=== PATIENT | female | born 2005 | race Two or more races ===

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

== ENCOUNTER 2023-01-23 15:48 | Emergency (ER) | payer MEDICAID, SELFPAY ==
--- NOTE | ~2023-01-23 | US_ITS ---
EXAMINATION: US FIRST TRIMESTER CLINICAL INFORMATION: Abdominal pain, . LMP: Unknown Beta-hCG: Unknown COMPARISON: 12/18/2022 TECHNIQUE: Transabdominal imaging was performed. FINDINGS: Limited ultrasound. Single intrauterine gestational sac, cephalic presentation. Gestational age 26 weeks and 5 days. No ultrasound evidence of a placental hemorrhage. Normal heart rate of 158 beats per minutes. Previously estimated date of confinement 04/26/2023. During the exam motion was observed. US/US OB limited IMPRESSION: Limited ultrasound for viability. Single live intrauterine , motion observed. Cephalic presentation. This is very limited exam and does not include proper assessment. Recommend attention to follow-up complete ultrasound.
--- NOTE | 2023-01-23 15:50 | ED.GENADULT ---
HPI - General Adult General Chief complaint: Abdominal Pain <ROSEMARIE Varela - Last Filed: 01/23/23 15:51> Stated complaint: / sharp pain right side <ROSEMARIE Varela - Last Filed: 01/23/23 15:51> Time Seen by Provider: 01/23/23 16:05 <ROSEMARIE Varela - Last Filed: 01/23/23 15:51> Source: patient <Rafy Ordonez MD - Last Filed: 01/23/23 17:27> History of Present Illness HPI narrative: 18-year-old female , 27 weeks 4 days single intrauterine based on EDC 04/20/2023 determined by ultrasound on 12/18/2021 who presents emergency department for evaluation right-sided abdominal. Patient is followed at [facility]. The patient states she was walking mall around 15:00 hours when she had a sudden onset of right lower quadrant pain. She described as sharp pain. She sat down for approximately 10 minutes and the pain resolved. She then got up and was walking around the mall and the pain came back. She describes the pain is a sharp/cramping luxation which comes and goes. She states that last about 15 minutes. At the time my evaluation, she states that she is pain-free. The patient denied fever, chills, rhinorrhea, shortness of breath, cough, myalgias, arthralgias, frequency, urgency, dysuria, vaginal discharge or vaginal bleeding. She states that she does feel the baby moving and there has been no diminished movement. The patient was seen in the emergency department on 12/18/2022 with 4 days of mid back pain which was worse with walking. At that time she had an evaluation including an ultrasound which revealed a single intrauterine , ultrasound revealed no renal disease. Patient had a urinary tract infection based on UA, and she was treated with antibiotics, urine culture was negative. <Rafy Ordonez MD - Last Filed: 01/23/23 17:27> Related Data Home medications: Previous Rx's Medication Instructions Recorded cefpodoxime 200 mg tablet 200 mg PO BID #20 tabs 12/18/22 <ROSEMARIE Varela - Last Filed: 01/23/23 15:51> Allergies/adverse reactions: Allergies Allergy/AdvReac Type Severity Reaction Status Date / Time No Known Allergies Allergy Unverified 08/15/20 17:05 <ROSEMARIE Varela - Last Filed: 01/23/23 15:51> Review of Systems Review of Systems: Yes all other systems are reviewed and are negative <Rafy Ordonez MD - Last Filed: 01/23/23 17:27> FORMERLY [facility], [facility] Past Medical History Attestation statement: The following information was validated with the patient. <Rafy Ordonez MD - Last Filed: 01/23/23 17:27> FORMERLY [facility], [facility] Narrative: Past medical history: None. Past surgical history: None. Social history: She denies tobacco use. She denies alcohol use. She states she occasionally smokes marijuana but since she has found others and she has tried to cut down on use. <Rafy Ordonez MD - Last Filed: 01/23/23 17:27> Social History Social History: Social History Alcohol intake: never Smoked in Last 30 Days: No Use of substances other than those prescribed or required for medical reasons: No Substance Use Type: Marijuana Advance Directives: No Advance Directives Information Provided: Yes <ROSEMARIE Varela - Last Filed: 01/23/23 15:51> Physical Exam ED Vital Signs: Vital Signs - 24 hr 01/23/23 15:52 01/23/23 16:36 Temperature 98.2 F Pulse Rate 80 77 Respiratory Rate 18 18 Blood Pressure 127/65 129/77 Pulse Oximetry 98 99 Oxygen Delivery Method Room Air Room Air BMI result Body Mass Index 24.1 <ROSEMARIE Varela - Last Filed: 01/23/23 15:51> Vital Signs - 24 hr 01/23/23 15:52 01/23/23 16:36 Temperature 98.2 F Pulse Rate 80 77 Respiratory Rate 18 18 Blood Pressure 127/65 129/77 Pulse Oximetry 98 99 Oxygen Delivery Method Room Air Room Air BMI result Body Mass Index 24.1 <Rafy Ordonez MD - Last Filed: 01/23/23 17:27> Const Other: Awake, alert, female patient, very pleasant cooperative, does not appear to be in distress, answers all questions appropriately <Rafy Ordonez MD - Last Filed: 01/23/23 17:27> HENMT Head: Yes normal to inspection, Yes normocephalic and Yes atraumatic <Rafy Ordonez MD - Last Filed: 01/23/23 17:27> Ears: external ears normal <Rafy Ordonez MD - Last Filed: 01/23/23 17:27> General nose exam: Normal external nose present <Rafy Ordonez MD - Last Filed: 01/23/23 17:27> Face and sinus: Yes normal facial exam <Rafy Ordonez MD - Last Filed: 01/23/23 17:27> Mouth: Normal oral and palatal mucosa present <Rafy Ordonez MD - Last Filed: 01/23/23 17:27> Throat: Yes posterior oropharynx normal <Rafy Ordonez MD - Last Filed: 01/23/23 17:27> Eyes General: appearance normal, both eyes and all related structures <Rafy Ordonez MD - Last Filed: 01/23/23 17:27> Pupils: Equal, round and reactive pupils present <MD Anant Bailey Last Filed: 01/23/23 17:27> Neck Neck: Yes normal visual inspection, Yes no lymphadenopathy, Yes trachea midline and Yes supple <MD Anant Bailey Last Filed: 01/23/23 17:27> Chest Chest palpation & inspection: normal inspection of the chest and normal palpation of entire chest wall <MD Anant Bailey Last Filed: 01/23/23 17:27> Resp Effort & Inspection: normal respiratory effort and able to speak in complete sentences <MD Anant Bailey Last Filed: 01/23/23 17:27> Auscultation: clear to auscultation bilaterally <MD Anant Bailey Last Filed: 01/23/23 17:27> Cardio Rate: regular rate <MD Anant Bailey Last Filed: 01/23/23 17:27> Rhythm: regular rhythm <Rafy Ordonez MD - Last Filed: 01/23/23 17:27> Heart sounds: S1 normal heart sound present, S2 normal heart sound present and no murmurs <Rafy Ordonez MD - Last Filed: 01/23/23 17:27> GI Other: Patient has a gravid uterus <Rafy Ordonez MD - Last Filed: 01/23/23 17:27> Inspection: Yes normal to inspection <Rafy Ordonez MD - Last Filed: 01/23/23 17:27> Palpation (GI): Soft to palpation, nontender and no guarding <Rafy Ordonez MD - Last Filed: 01/23/23 17:27> Auscultation: normal bowel sounds <Rafy Ordonez MD - Last Filed: 01/23/23 17:27> General: Yes no CVA tenderness <Rafy Ordonez MD - Last Filed: 01/23/23 17:27> Back/Spine/Pelvis Back: no CVA tenderness <Rafy Ordonez MD - Last Filed: 01/23/23 17:27> Skin General skin exam: no rashes or lesions noted <Rafy Ordonez MD - Last Filed: 01/23/23 17:27> Neuro Cranial nerves: Yes Equal, round and reactive pupils present <Rafy Ordonez MD - Last Filed: 01/23/23 17:27> Cognition (Neuro): normal cognition <Rafy Ordonez MD - Last Filed: 01/23/23 17:27> Motor exam (neuro): 5/5 motor strength present throughout <Rafy Ordonez MD - Last Filed: 01/23/23 17:27> Extrem General: Yes normal to inspection <Rafy Ordonez MD - Last Filed: 01/23/23 17:27> Psych Appearance: grossly normal <Rafy Ordonez MD - Last Filed: 01/23/23 17:27> Speech and movement: Normal speech and movement present <MD Anant Bailey Last Filed: 01/23/23 17:27> Affect: normal affect <MD Anant Bailey Last Filed: 01/23/23 17:27> Attitude: cooperative <Rafy Ordonez MD - Last Filed: 01/23/23 17:27> Course Course Course Narrative: RME performed by Christina Blair PA-C. Patient is a 18 year old female presenting to the emergency department with right sided abdominal pain. Patient states that she was walking at the mall and felt a pain in her abdomen but can feel her baby move still. Patient states that she is 6 months . <ROSEMARIE Varela - Last Filed: 01/23/23 15:51> Medical Decision Making Medical Decision Making MDM Narrative: 18-year-old female 27 weeks 4 days based on ultrasound done on 12/18/2022 who presents emergency department for evaluation of intermittent right sided lower abdominal pain lasting 15 minutes and recurring multiple times. Symptoms began at 15:00 hours while she was walking in the mall. Patient has had no other concerning symptoms such as frequency, urgency, dysuria, vaginal bleeding or vaginal discharge. Patient's physical exam revealed no abdominal tenderness, she was not having pain at the time my examination. 1648: Laboratory evaluation interpreted by me as follows: Elevated WBC 55216, mild anemia with an H&H of 1132.8 with a normal MCV of 81. Comprehensive metabolic panel was normal with normal LFTs. Quantitative beta-hCG was 13,971. Urinalysis, influenza and COVID tests are pending. Patient had an OB ultrasound ordered by provider in triage which revealed a single intrauterine estimated date of 20/6 weeks 5 days, heart rate was 158, the fetus is in the cephalic position, there was movement noted by the cinetechnician. The patient's vital signs were normal, I do not think that she is experiencing preeclampsia as the cause of her pain. The patient's pain is concerning for possible contractions especially since the pain is a cramping sensation, lasting 15 minutes, resolved completely and has come back several times. I did discuss transfer for monitoring with the [facility] transfer line and will discuss the patient with the covering attending OBGYN at [facility] 1723: I did discuss the patient's presentation with the covering OBGYN at [facility] and the accepting attending physician is . The patient will be transferred to [place] [id number] by BLS ambulance. Patient currently has no abdominal pain. <Rafy Ordonez MD - Last Filed: 01/23/23 17:27> Differential Diagnosis Differential diagnosis includes but is not limited to pre term labor, preeclampsia, threatened miscarriage, appendicitis, acute cystitis, renal colic <Rafy Ordonez MD - Last Filed: 01/23/23 17:27> Consult Healthcare Provider Management of the patient was discussed with: Work Order Sorting Clerk (Covering OBGYN physician at [facility]) <Rafy Ordonez MD - Last Filed: 01/23/23 17:27> Lab Data [facility] Lab Attestation statement: I reviewed the patient's lab results. <Rafy Ordonez MD - Last Filed: 01/23/23 17:27> Please see the MDM for discussion <Rafy Ordonez MD - Last Filed: 01/23/23 17:27> Result Diagrams: 01/23/23 15:58 01/23/23 15:58 <ORSEMARIE Varela - Last Filed: 01/23/23 15:51> Labs: Lab Results 01/23/23 01/23/23 01/23/23 Range/Units 15:58 15:58 16:46 WBC 14.0 H (4.8-10.8) X10*3/uL RBC 4.03 L (4.20-5.50) X10*6/uL Hgb 11.7 L (12.0-16.0) g/dl Hct 32.8 L (37.0-47.0) % MCV 81.4 (80.0-98.0) fL MCH 29.0 (27.0-33.0) pg MCHC 35.7 H (31.0-35.0) g/dl RDW 12.4 (11.0-16.0) % Plt Count 242 (160-400) X10*3/uL MPV 11.1 (9.4-12.3) fL Immature Gran % (Auto) 0.4 (0.0-0.4) % Neut % (Auto) 83.8 H (45-73) % Lymph % (Auto) 11.3 L (20-40) % Wallace % (Auto) 3.9 (2-11) % Eos % (Auto) 0.5 (0-4) % Baso % (Auto) 0.1 (0-2) % Lymph # (Auto) 1.6 (1.2-4.9) X10*3/uL Wallace # (Auto) 0.6 (0.1-1.2) X10*3/uL Eos # (Auto) 0.1 (0.0-0.4) X10*3/uL Baso # (Auto) 0.0 (0.0-0.2) X10*3/uL Abs Immat Gran (auto) 0.05 H (0.00-0.03) X10*3/uL Absolute Neuts (auto) 11.7 H (2.0-8.3) x10*3/uL Absolute Nucleated RBC 0.000 (0.0-0.012) X10*3/uL Nucleated RBC % (auto) 0.0 (0.0-0.2) /100WBC Sodium 141 (135-145) mmol/L Potassium 3.9 (3.3-5.1) mmol/L Chloride 111 H (96-108) mmol/L Carbon Dioxide 21 L (22-29) mmol/L Anion Gap 13 (12-20) BUN 10 (9-16) mg/dL Creatinine 0.67 (0.5-1.4) mg/dL Estim Creat Clear Calc 125.4 Estimated GFR > 60 Random Glucose 94 (60-115) mg/dL Calcium 9.0 (8.4-10.2) mg/dL Magnesium 1.6 (1.6-2.6) mg/dL Total Bilirubin 0.3 (0.0-1.0) mg/dL AST 16 (5-31) U/L ALT 12 (0-31) U/L Alkaline Phosphatase 99 (39-117) U/L Total Protein 6.7 (6.5-8.0) g/dL Albumin 3.5 (3.5-5.0) g/dL Beta HCG, Quant 03188 mIU/mL Urine Color Urine Appearance Urine pH (5.0-9.0) Ur Specific Terrell (1.005-1.025) Urine Protein (Neg-Trace) mg/dL Urine Glucose (UA) (Negative) mg/dL Urine Ketones (Negative) mg/dL Urine Blood (Negative) Urine Nitrite (Negative) Ur Leukocyte Esterase (Negative) Urine RBC (0-2) /HPF Urine WBC (0-5) /HPF Ur Squamous Epith Cells (0-2) /HPF Urine Bacteria (None Seen) Hyaline Casts (0-2) /LPF COVID-19 (KARTHIK) (Negative) COVID-19 Clin Com Influenza Type A (TAMAR) Negative (Negative) Influenza Type B (TAMAR) Negative (Negative) Influenza A & B Note See Note 01/23/23 01/23/23 Range/Units 16:46 16:46 WBC (4.8-10.8) X10*3/uL RBC (4.20-5.50) X10*6/uL Hgb (12.0-16.0) g/dl Hct (37.0-47.0) % MCV (80.0-98.0) fL MCH (27.0-33.0) pg MCHC (31.0-35.0) g/dl RDW (11.0-16.0) % Plt Count (160-400) X10*3/uL MPV (9.4-12.3) fL Immature Gran % (Auto) (0.0-0.4) % Neut % (Auto) (45-73) % Lymph % (Auto) (20-40) % Wallace % (Auto) (2-11) % Eos % (Auto) (0-4) % Baso % (Auto) (0-2) % Lymph # (Auto) (1.2-4.9) X10*3/uL Wallace # (Auto) (0.1-1.2) X10*3/uL Eos # (Auto) (0.0-0.4) X10*3/uL Baso # (Auto) (0.0-0.2) X10*3/uL Abs Immat Gran (auto) (0.00-0.03) X10*3/uL Absolute Neuts (auto) (2.0-8.3) x10*3/uL Absolute Nucleated RBC (0.0-0.012) X10*3/uL Nucleated RBC % (auto) (0.0-0.2) /100WBC Sodium (135-145) mmol/L Potassium (3.3-5.1) mmol/L Chloride (96-108) mmol/L Carbon Dioxide (22-29) mmol/L Anion Gap (12-20) BUN (9-16) mg/dL Creatinine (0.5-1.4) mg/dL Estim Creat Clear Calc Estimated GFR Random Glucose (60-115) mg/dL Calcium (8.4-10.2) mg/dL Magnesium (1.6-2.6) mg/dL Total Bilirubin (0.0-1.0) mg/dL AST (5-31) U/L ALT (0-31) U/L Alkaline Phosphatase (39-117) U/L Total Protein (6.5-8.0) g/dL Albumin (3.5-5.0) g/dL Beta HCG, Quant mIU/mL Urine Color Yellow Urine Appearance Turbid Urine pH 7.5 (5.0-9.0) Ur Specific Terrell 1.025 (1.005-1.025) Urine Protein Trace (Neg-Trace) mg/dL Urine Glucose (UA) Negative (Negative) mg/dL Urine Ketones Negative (Negative) mg/dL Urine Blood Negative (Negative) Urine Nitrite Negative (Negative) Ur Leukocyte Esterase Moderate (2+) H (Negative) Urine RBC 3-5 H (0-2) /HPF Urine WBC 6-10 (0-5) /HPF Ur Squamous Epith Cells 6-10 (0-2) /HPF Urine Bacteria 1+ (None Seen) Hyaline Casts 0-2 (0-2) /LPF COVID-19 (KARTHIK) Negative (Negative) COVID-19 Clin Com See Note Influenza Type A (TAMAR) (Negative) Influenza Type B (TAMAR) (Negative) Influenza A & B Note <ROSEMARIE Varela - Last Filed: 01/23/23 15:51> Lab Results 01/23/23 01/23/23 01/23/23 Range/Units 15:58 15:58 16:46 WBC 14.0 H (4.8-10.8) X10*3/uL RBC 4.03 L (4.20-5.50) X10*6/uL Hgb 11.7 L (12.0-16.0) g/dl Hct 32.8 L (37.0-47.0) % MCV 81.4 (80.0-98.0) fL MCH 29.0 (27.0-33.0) pg MCHC 35.7 H (31.0-35.0) g/dl RDW 12.4 (11.0-16.0) % Plt Count 242 (160-400) X10*3/uL MPV 11.1 (9.4-12.3) fL Immature Gran % (Auto) 0.4 (0.0-0.4) % Neut % (Auto) 83.8 H (45-73) % Lymph % (Auto) 11.3 L (20-40) % Wallace % (Auto) 3.9 (2-11) % Eos % (Auto) 0.5 (0-4) % Baso % (Auto) 0.1 (0-2) % Lymph # (Auto) 1.6 (1.2-4.9) X10*3/uL Wallace # (Auto) 0.6 (0.1-1.2) X10*3/uL Eos # (Auto) 0.1 (0.0-0.4) X10*3/uL Baso # (Auto) 0.0 (0.0-0.2) X10*3/uL Abs Immat Gran (auto) 0.05 H (0.00-0.03) X10*3/uL Absolute Neuts (auto) 11.7 H (2.0-8.3) x10*3/uL Absolute Nucleated RBC 0.000 (0.0-0.012) X10*3/uL Nucleated RBC % (auto) 0.0 (0.0-0.2) /100WBC Sodium 141 (135-145) mmol/L Potassium 3.9 (3.3-5.1) mmol/L Chloride 111 H (96-108) mmol/L Carbon Dioxide 21 L (22-29) mmol/L Anion Gap 13 (12-20) BUN 10 (9-16) mg/dL Creatinine 0.67 (0.5-1.4) mg/dL Estim Creat Clear Calc 125.4 Estimated GFR > 60 Random Glucose 94 (60-115) mg/dL Calcium 9.0 (8.4-10.2) mg/dL Magnesium 1.6 (1.6-2.6) mg/dL Total Bilirubin 0.3 (0.0-1.0) mg/dL AST 16 (5-31) U/L ALT 12 (0-31) U/L Alkaline Phosphatase 99 (39-117) U/L Total Protein 6.7 (6.5-8.0) g/dL Albumin 3.5 (3.5-5.0) g/dL Beta HCG, Quant 29444 mIU/mL Urine Color Urine Appearance Urine pH (5.0-9.0) Ur Specific Terrell (1.005-1.025) Urine Protein (Neg-Trace) mg/dL Urine Glucose (UA) (Negative) mg/dL Urine Ketones (Negative) mg/dL Urine Blood (Negative) Urine Nitrite (Negative) Ur Leukocyte Esterase (Negative) Urine RBC (0-2) /HPF Urine WBC (0-5) /HPF Ur Squamous Epith Cells (0-2) /HPF Urine Bacteria (None Seen) Hyaline Casts (0-2) /LPF COVID-19 (KARTHIK) (Negative) COVID-19 Clin Com Influenza Type A (TAMAR) Negative (Negative) Influenza Type B (TAMAR) Negative (Negative) Influenza A & B Note See Note 01/23/23 01/23/23 Range/Units 16:46 16:46 WBC (4.8-10.8) X10*3/uL RBC (4.20-5.50) X10*6/uL Hgb (12.0-16.0) g/dl Hct (37.0-47.0) % MCV (80.0-98.0) fL MCH (27.0-33.0) pg MCHC (31.0-35.0) g/dl RDW (11.0-16.0) % Plt Count (160-400) X10*3/uL MPV (9.4-12.3) fL Immature Gran % (Auto) (0.0-0.4) % Neut % (Auto) (45-73) % Lymph % (Auto) (20-40) % Wallace % (Auto) (2-11) % Eos % (Auto) (0-4) % Baso % (Auto) (0-2) % Lymph # (Auto) (1.2-4.9) X10*3/uL Wallace # (Auto) (0.1-1.2) X10*3/uL Eos # (Auto) (0.0-0.4) X10*3/uL Baso # (Auto) (0.0-0.2) X10*3/uL Abs Immat Gran (auto) (0.00-0.03) X10*3/uL Absolute Neuts (auto) (2.0-8.3) x10*3/uL Absolute Nucleated RBC (0.0-0.012) X10*3/uL Nucleated RBC % (auto) (0.0-0.2) /100WBC Sodium (135-145) mmol/L Potassium (3.3-5.1) mmol/L Chloride (96-108) mmol/L Carbon Dioxide (22-29) mmol/L Anion Gap (12-20) BUN (9-16) mg/dL Creatinine (0.5-1.4) mg/dL Estim Creat Clear Calc Estimated GFR Random Glucose (60-115) mg/dL Calcium (8.4-10.2) mg/dL Magnesium (1.6-2.6) mg/dL Total Bilirubin (0.0-1.0) mg/dL AST (5-31) U/L ALT (0-31) U/L Alkaline Phosphatase (39-117) U/L Total Protein (6.5-8.0) g/dL Albumin (3.5-5.0) g/dL Beta HCG, Quant mIU/mL Urine Color Yellow Urine Appearance Turbid Urine pH 7.5 (5.0-9.0) Ur Specific Terrell 1.025 (1.005-1.025) Urine Protein Trace (Neg-Trace) mg/dL Urine Glucose (UA) Negative (Negative) mg/dL Urine Ketones Negative (Negative) mg/dL Urine Blood Negative (Negative) Urine Nitrite Negative (Negative) Ur Leukocyte Esterase Moderate (2+) H (Negative) Urine RBC 3-5 H (0-2) /HPF Urine WBC 6-10 (0-5) /HPF Ur Squamous Epith Cells 6-10 (0-2) /HPF Urine Bacteria 1+ (None Seen) Hyaline Casts 0-2 (0-2) /LPF COVID-19 (KARTHIK) Negative (Negative) COVID-19 Clin Com See Note Influenza Type A (TAMAR) (Negative) Influenza Type B (TAMAR) (Negative) Influenza A & B Note <Rafy Ordonez MD - Last Filed: 01/23/23 17:27> Radiology Impression Discussion of test interpretation with radiology: I have reviewed the radiologist's reading. <Rafy Ordonez MD - Last Filed: 01/23/23 17:27> Radiologist Impression: US FIRST TRIMESTER CLINICAL INFORMATION: Abdominal pain, . LMP: Unknown Beta-hCG: Unknown COMPARISON: 12/18/2022 TECHNIQUE: Transabdominal imaging was performed. FINDINGS: Limited ultrasound. Single intrauterine gestational sac, cephalic presentation. Gestational age 26 weeks and 5 days. No ultrasound evidence of a placental hemorrhage. Normal heart rate of 158 beats per minutes. Previously estimated date of confinement 04/26/2023. During the exam motion was observed. US/US OB limited IMPRESSION: Limited ultrasound for viability. Single live intrauterine , motion observed. Cephalic presentation. This is very limited exam and does not include proper assessment. Recommend attention to follow-up complete ultrasound. Dictated By:Poly Rachel MDSigned By:<Electronically signed by Poly Rachel MD in [place]>01/23/231658 <Rafy Ordonez MD - Last Filed: 01/23/23 17:27> Independent Historian Clinical information obtained from an independent historian. History obtained from or confirmed by: Other (Mother) <Rafy Ordonez MD - Last Filed: 01/23/23 17:27> Discharge Plan Discharge Clinical Impression: Abdominal pain affecting <ROSEMARIE Varela - Last Filed: 01/23/23 15:51> Patient Disposition: [facility] <ROSEMARIE Varela - Last Filed: 01/23/23 15:51> [facility] <ROSEMARIE Varela - Last Filed: 01/23/23 15:51> [facility] <Rafy Ordonez MD - Last Filed: 01/23/23 17:27> Prescriptions: No Action cefpodoxime 200 mg tablet 200 mg PO BID Qty: 20 0RF Rx Instructions: must administer with a meal/food <ROSEMARIE Varela - Last Filed: 01/23/23 15:51>
[2023-01-23 15:52] VITALS: BP 127/65; PULSE 80; RESP 18; TEMP 36.8; O2SAT 98; BMI 24.1
[2023-01-23 16:02] LABS: MANUAL DIFF FLAG NO
[2023-01-23 16:03] LABS: Basophils Percent Auto 0.1 % (0-2); Eosinophils Absolute Auto 0.1 X10*3/uL (0.0-0.4); Eosinophils Percent Auto 0.5 % (0-4); Hematocrit 32.8 % (37.0-47.0); Hemoglobin 11.7 g/dl (12.0-16.0); Imm Gran Abs Auto 0.05 X10*3/uL (0.00-0.03); Imm Gran Pct Auto 0.4 % (0.0-0.4); Lymphocytes Absolute Auto 1.6 X10*3/uL (1.2-4.9); Lymphocytes Percent Auto 11.3 % (20-40); Mean Corpuscular HGB Conc 35.7 g/dl (31.0-35.0); Mean Corpuscular Volume 81.4 fL (80.0-98.0); Mean Platelet Volume 11.1 fL (9.4-12.3); Monocytes Absolute Auto 0.6 X10*3/uL (0.1-1.2); Monocytes Percent Auto 3.9 % (2-11); Neutrophils Absolute Auto 11.7 x10*3/uL (2.0-8.3); Neutrophils Percent Auto 83.8 % (45-73); Platelet Count 242 X10*3/uL (160-400); Red Blood Count 4.03 X10*6/uL (4.20-5.50); Red Cell Distribution Width 12.4 % (11.0-16.0)
[2023-01-23 16:24] LABS: Alanine Aminotransferase 12 U/L (0-31); Albumin Level 3.5 g/dL (3.5-5.0); Alkaline Phosphatase 99 U/L (39-117); Anion Gap 13 (12-20); Aspartate Amino Transferase 16 U/L (5-31); Bilirubin Total 0.3 mg/dL (0.0-1.0); Blood Urea Nitrogen 10 mg/dL (9-16); Carbon Dioxide 21 mmol/L (22-29); Chloride 111 mmol/L (96-108); Creatinine Clr Calc Pharmacy 125.4; Estimated Glomerular Filt Rate > 60; Glucose Random 94 mg/dL (60-115); HCG Quantitative 13971 mIU/mL; Magnesium 1.6 mg/dL (1.6-2.6); Potassium 3.9 mmol/L (3.3-5.1); Sodium 141 mmol/L (135-145); Total Protein 6.7 g/dL (6.5-8.0)
[2023-01-23 16:36] VITALS: BP 129/77; PULSE 77; RESP 18; O2SAT 99
--- NOTE | 2023-01-23 16:45 | MHC.EDTECH ---
@[id number] DR JERNIGAN REQUESTS CALL OUT [facility] PT TX LINE FOR [facility] [place] ANSWERS,TAKES PT INFO, THEN ASKS TO SPEAK WITH DR RERE JERNIGAN TAKES OVER CALL RIGHT AWAY
[2023-01-23 16:56] LABS: Appearance Urine Turbid; Color Urine Yellow; Glucose Urine UA Negative (Negative); Leukocyte Esterase Urine Moderate (2+) (Negative); Nitrite Urine Negative (Negative); PH 7.5 (5.0-9.0); Specific Gravity - Urine 1.025 (1.005-1.025); UMIC TRIGGER UACC YES; Urine Blood Negative (Negative); Urine Ketones Negative (Negative); Urine Protein Trace mg/dL (Neg-Trace)
[2023-01-23 17:06] LABS: COVID-19 Test Negative (Negative); IDNOW Serial# 16C4AD1C
[2023-01-23 17:10] LABS: Bacteria Urine 1+ (None Seen); Hyaline Casts Urine 0-2 /LPF (0-2); UACC Culture Trigger YES
--- NOTE | 2023-01-23 17:11 | MHC.EDTECH ---
@1058 CALL RECEIVED FROM [place] [facility] PT TX LINE ASKING TO SPEAK WITH DR RERE JERNIGAN TAKES OVER CALL RIGHT AWAY
[2023-01-23 17:15] LABS: IDNOW Serial# BCCEAD1C; Influenza A Negative (Negative); Influenza B2 Negative (Negative)
--- NOTE | 2023-01-23 17:25 | MHC.EDTECH ---
PER DR JERNIGAN, THIS PT ACCEPTED @ [facility] 2
--- NOTE | 2023-01-23 17:34 | MHC.EDTECH ---
@1147 [facility] CALLED FOR BLS TX TO [facility] 2 @ REQUEST OF DR RERE MERRILL ANSWERS, TAKES PT INFO THEN GIVES A [address] JERNIGAN AGREES BUT NO LONGER THAN AN HOUR
== END 2023-01-23 17:45 | disposition short-term general hospital (02) ==
PROVIDERS: Physician Assistant Medical; Emergency Provider Emergency Medicine Emergency Medical Services
DX: O26.892 Other specified pregnancy related conditions, second trimester (principal); R10.30 Lower abdominal pain, unspecified; O99.322 Drug use complicating pregnancy, second trimester; F12.90 Cannabis use, unspecified, uncomplicated; Z3A.26 26 weeks gestation of pregnancy; Z20.822 Contact with and (suspected) exposure to COVID-19
CPT/HCPCS: 36415; 76815; 80053; 81001; 83735; 84702; 85025; 87086; 87502; 87635; 99285

== ENCOUNTER 2025-02-11 12:50 | Emergency (ER) | payer SELFPAY ==
--- NOTE | ~2025-02-11 | XR_ITS ---
CLINICAL HISTORY: chest pain 2 view chest x-ray Comparison: None Findings: The lungs are clear. Normal size heart. No acute fracture. IMPRESSION: 1. No acute findings. This document has been electronically signed by: Miya Desai MD on 02/11/2025 15:33:11
--- NOTE | 2025-02-11 12:52 | ECG_ITS ---
Test Reason : CP Blood Pressure : */* mmHG Vent. Rate : 88 BPM Atrial Rate : 88 BPM P-R Int : 140 ms QRS Dur : 84 ms QT Int : 342 ms P-R-T Axes : 55 70 41 degrees QTcB Int : 413 ms Normal sinus rhythm with sinus arrhythmia Nonspecific T wave abnormality Abnormal ECG When compared with ECG of 12-Sep-2018 22:43, PREVIOUS ECG IS PRESENT Referred By: Generic ED Physician Electronically Signed By: Juanjose Gilbert
[2025-02-11 12:58] VITALS: BP 132/89; PULSE 84; RESP 16; TEMP 36.4; O2SAT 99; BMI 19.4
--- NOTE | 2025-02-11 12:59 | ED.CHESTPAIN ---
HPI - Chest Pain General Chief Complaint: Chest Pain Stated Complaint: chest pain, low back pain Time Seen by Provider: 02/11/25 13:21 Source: patient Mode of arrival: ambulatory Limitations: no limitations History of Present Illness ED Provider: Harinder Vang DO HPI narrative: 20-year-old female with no significant past medical history or surgical history presents to the emergency department for 2 days of sharp intermittent bilateral anterior chest pains that is specifically worsened with certain movements such as standing for a long time or placing her hands behind her head or stretching her arms upward. She reports a mild decrease in appetite recently as well as initiation of antibiotic therapy for a recent dental infection with dental follow up. She denies any additional symptoms including exertional symptoms, chest pressure, difficulty breathing, nausea, sweating, vomiting, abdominal pain or urinary symptoms. She endorses cannabis use. She denies other illicit drug use. She denies pleuritic chest pain, dyspnea on exertion or lower extremity pain or swelling. Related Data Previous Rx's ?Medication ?Instructions ?Recorded cefpodoxime 200 mg tablet 200 mg PO BID #20 tabs 12/18/22 lidocaine 5 % topical patch 1 patch topical DAILY #30 ea 02/11/25 Allergies Allergy/AdvReac Type Severity Reaction Status Date / Time Pollen Allergy Unknown Unknown Uncoded 02/11/25 13:00 Review of Systems Review of Systems: Yes all other systems are reviewed and are negative [facility] Social History Social History (System 09/15/23 @ 14:58 by Elizabeth Simmons) Alcohol intake: never Substance Use Type: Marijuana Advance Directives: No Advance Directives Information Provided: No Physical Exam Vital Signs: Vital Signs: Last Vital Signs Temp 97.6 F 02/11/25 12:58 Pulse 84 02/11/25 12:58 Resp 16 02/11/25 12:58 BP 132/89 02/11/25 12:58 Pulse Ox 99 02/11/25 12:58 O2 Del Method Room Air 02/11/25 12:58 BMI result Body Mass Index 19.4 Constitutional: ?Alert, oriented, speaking in full sentences HEENT: ?Normocephalic, atraumatic. ?Moist mucous membranes Eyes: ?PERRL, EOMI Neck: ?Supple, nontender Chest: ?Mild reproducible chest wall tenderness of the parasternal regions bilaterally. Respiratory: ?Lungs clear to auscultation, no increased work of breathing Cardio: ?Regular rate and rhythm, no murmur, 2+ radial and DP pulses symmetrically GI: ?Soft, nondistended, nontender Back: ?Normal range of motion, nontender Skin: ?No rash, no lesions Neuro: ?Alert and oriented to person, place and time, moves all 4 extremities, no focal deficits Extremities: ?No swelling or tenderness, full range of motion Psych: ?Calm, alert and cooperative, appropriate behavior Course Course Course Narrative: This is a Rapid Medical Examination (RME) performed by Minoo Marin PA-C in triage. Full HPI, ROS, assessment and treatment plan per primary provider in the Main ED. 20 yo female presents to the ER for evaluation of acute onset of central intermediate sharp chest pains that started yesterday and worsened this morning. No SOB or dizziness. pain worse with moving the arms and deep breaths. today also has lower back pain. no urinary symptoms. she isnt sure if shes or not, thinks her LMP was last month but not sure. Plan: Upreg, CXR, additional workup per primary provider Medications Administered Discontinued Medications Generic Name Dose Route Start Last Admin Trade Name Freq PRN Reason Stop Dose Admin Acetaminophen 975 mg 02/11/25 14:34 02/11/25 14:46 Acetaminophen 325 Mg Tablet PO 02/11/25 14:35 975 mg ONCE ONE Administration Ibuprofen 600 mg 02/11/25 14:34 02/11/25 14:45 Ibuprofen 600 Mg Tablet PO 02/11/25 14:35 600 mg ONCE ONE Administration Lidocaine 1 patch 02/11/25 14:34 02/11/25 14:46 Lidocaine 4 % Patch Adh..Patch TRANSDERMA 02/11/25 14:35 1 patch ONCE ONE Administration Protocol Medical Decision Making Medical Decision Making [facility] Narrative: This patient presents with atypical chest pain, most likely secondary to costochondritis. Differential diagnosis includes muscle strain. Low suspicion for ACS, acute PE (PERC negative), pericarditis / myocarditis, thoracic aortic dissection, pneumothorax, pneumonia or other acute infectious process. Presentation not consistent with other acute, emergent causes of chest pain at this time. No indication for cardiac enzyme testing. Plan to order CXR to evaluate for acute cardiopulmonary causes, screening ECG, and pain control. Pain improved with ibuprofen, acetaminophen and Lidoderm patch. Return precautions provided well as management home. I did perform a bedside echocardiogram (unable to save images) which did not show pericardial effusion or other gross abnormalities of the heart. Lab Data Labs: Lab Results 02/11/25 Range/Units 14:25 Urine Test NEGATIVE (NEGATIVE) Independent Interpretation I performed an independent interpretation of an: EKG and Plain X-Ray (Chest x-ray per my independent interpretation shows no acute cardiopulmonary abnormalities.) Interpretation: Normal sinus rhythm at 88 beats per minute, normal axis, normal intervals, no diagnostic ST or T-wave abnormalities, no signs of Yjzcb-Pbkbfiuon-Swaor syndrome, AV laura blockade, hypertrophic cardiomyopathy, arrhythmogenic right ventricular cardiomyopathy, Brugada syndrome, prolonged QT or any ischemic changes. Discharge Plan Discharge Clinical Impression: Chest wall pain Patient Disposition: Home, Self-Care Instructions: Chest Pain (ED), Costochondritis (ED) Additional Instructions: You have been evaluated in the emergency department for chest pain today.? Although it was determined that there was not an immediately life threatening cause for your chest pain, it is very important that you follow up with your primary care physician.? Take ibuprofen 400 mg every 6 hours with food and acetaminophen 500 mg every 6-8 hours for the next week or 2 as well as Lidoderm patches to help further address the pain. Please be aware that if your condition changes or worsens in any way while you are at home, you should return to the emergency department immediately for further care.? This is especially true for worsening / recurrent pain, shortness of breath, vomiting, sweating, palpitations, lightheadedness or passing out.? These may be signs of an emergency condition and you should call 911 if these symptoms occur. Thank you for choosing us for your care. Prescriptions: New lidocaine 5 % adhesive patch,medicated 1 patch topical DAILY Qty: 30 0RF Rx Instructions: leave on most painful area for up to 12 hrs No Action cefpodoxime 200 mg tablet 200 mg PO BID Qty: 20 0RF Rx Instructions: must administer with a meal/food Print Language: Lao
[2025-02-11 14:32] LABS: UPreg QC Valid YES; Urine Pregnancy NEGATIVE (NEGATIVE)
[2025-02-11] MEDS: Ibuprofen 600 MG TABLET PO (14:45)
[2025-02-11] MEDS: Acetaminophen 325 MG TABLET 975 MG PO (14:46)
[2025-02-11] MEDS: Lidocaine 4 % Patch ADH..PATCH 1 PATCH TRANSDERMA (14:46)
[2025-02-11 15:31] VITALS: BP 134/78; PULSE 85; RESP 16; TEMP 36.8; O2SAT 99
== END 2025-02-11 15:38 | disposition home or self-care (01) ==
PROVIDERS: Physician Assistant; Emergency Provider Emergency Medicine
DX: R07.89 Other chest pain (principal); M54.50 Low back pain, unspecified; Z79.899 Other long term (current) drug therapy
CPT/HCPCS: 71046; 81025; 93005; 99283; 99284

== ENCOUNTER → 2025-02-11 12:52 | Outpatient (BNV) | payer SELFPAY | PROVIDERS: Emergency Provider Emergency Medicine; Visit Provider Internal Medicine Cardiovascular Disease | DX: I49.9 Cardiac arrhythmia, unspecified (principal) | CPT/HCPCS: 93010 ==

== ENCOUNTER → 2025-02-11 13:01 | Outpatient (BNV) | payer SELFPAY | PROVIDERS: Emergency Provider Emergency Medicine; Visit Provider Radiology Diagnostic Radiology | DX: R07.9 Chest pain, unspecified (principal) | CPT/HCPCS: 71046 ==

== ENCOUNTER 2025-05-15 20:51 | Emergency (ER) | payer MEDICAID, SELFPAY ==
--- NOTE | 2025-05-15 | ECG_ITS ---
Test Reason : CHEST PAIN Blood Pressure : */* mmHG Vent. Rate : 69 BPM Atrial Rate : 69 BPM P-R Int : 138 ms QRS Dur : 86 ms QT Int : 380 ms P-R-T Axes : 23 73 57 degrees QTcB Int : 407 ms Normal sinus rhythm Normal ECG When compared with ECG of 11-Feb-2025 12:54, No significant change was found Referred By: Generic ED Physician Electronically Signed By: Juanjose Gilbert
[2025-05-15 20:59] VITALS: BP 131/63; PULSE 67; RESP 18; TEMP 36.9; O2SAT 98; BMI 22.1
[2025-05-15 21:14] LABS: MANUAL DIFF FLAG NO
[2025-05-15 21:15] LABS: Basophils Percent Auto 0.1 % (0-2); Eosinophils Percent Auto 0.5 % (0-4); Hematocrit 37.2 % (37.0-47.0); Hemoglobin 12.6 g/dl (12.0-16.0); Imm Gran Abs Auto 0.01 X10*3/uL (0.00-0.03); Imm Gran Pct Auto 0.1 % (0.0-0.4); Lymphocytes Absolute Auto 1.8 X10*3/uL (1.2-4.9); Lymphocytes Percent Auto 20.6 % (20-40); Mean Corpuscular HGB Conc 33.9 g/dl (31.0-35.0); Mean Corpuscular Hemoglobin 26.6 pg (27.0-33.0); Mean Corpuscular Volume 78.6 fL (80.0-98.0); Mean Platelet Volume 11.6 fL (9.4-12.3); Monocytes Absolute Auto 0.4 X10*3/uL (0.1-1.2); Monocytes Percent Auto 4.2 % (2-11); Neutrophils Absolute Auto 6.5 x10*3/uL (2.0-8.3); Neutrophils Percent Auto 74.5 % (45-73); Platelet Count 225 X10*3/uL (160-400); Red Blood Count 4.73 X10*6/uL (4.20-5.50); Red Cell Distribution Width 13.3 % (11.0-16.0); White Blood Count 8.8 X10*3/uL (4.8-10.8)
[2025-05-15 21:30] LABS: Alanine Aminotransferase 15 U/L (0-31); Albumin Level 4.4 g/dL (3.5-5.0); Alkaline Phosphatase 67 U/L (39-117); Anion Gap 10 (12-20); Aspartate Amino Transferase 20 U/L (5-31); Bilirubin Total 0.3 mg/dL (0.0-1.0); Blood Urea Nitrogen 16 mg/dL (9-16); Carbon Dioxide 22 mmol/L (22-29); Chloride 113 mmol/L (96-108); Creatinine Clr Calc Pharmacy 104.5; Estimated Glomerular Filt Rate > 60; Glucose Random 99 mg/dL (60-115); Magnesium 1.6 mg/dL (1.6-2.6); Potassium 3.5 mmol/L (3.3-5.1); Sodium 141 mmol/L (135-145); Total Protein 7.2 g/dL (6.5-8.0)
[2025-05-15 21:38] LABS: Troponin-I High Sensitivity < 2.7 ng/L (<3.5-17.0)
--- OUTSIDE RECORDS SUMMARY | 2025-05-16 00:42 | XMS_ITS | Clinical Summary ---
Author Organization [employer] Address [address] [place] [address] Care Team Providers Care Multiple Resaw Operator Name Role Phone Marcie Brenann MD Primary Care Provider [phone] Allergies No known active allergies Active Problems Patient Care Coordination No te Formatting of this note migh t be different from the original. C3/CM Ila Samuel RN No additional problems on file Encounters Date Type Department Care Team Description 03/01/2025 Telephone [facility] [address], [place] [phone] Marcie Brennan MD Appointment Request 02/26/2025 Telephone [facility] [address], [place] [phone] Marcie Brennan MD tp/director inpatient headache program? from Last 3 Months Immunizations Immunization Administration Dates Next Due HPV, Quadrivalent 02/19/2017,01/23/2016 Influenza injectable quadriv alent IIV4 with preservative 08/16/2018 Influenza injectable quadrivalent preservative f ree 10/16/2022 Influenza, IIV3, injectable 08/16/2018, 6 Influenza, seasonal, injectable, preservative fr ee 10/15/2016 Meningococcal B, Recombinant 06/07/2019,06/07/20 19 Meningococcal MCV4O 06/07/2019 Tdap 01/10/2022,06/07/2019 Social History Tobacco Use Types Packs/Day Years Used Date Smoking Tobacco: Never Assessed Housing Stability Answer Date Recorded What is your housing situation today? I have attila chaidez 09/15/[address] you li ve. Do you have problems with any of the following? None of the above 09/15/2023 Food Insecurity Answer Date Recorded Within the past 12 months, y ou worried that your food would run out before you got money to buy more: Never True 09/15/2023 Within the past 12 months,th e food you bought just didn't last and you didn't have enough money to get more: Never True Transportation Answer Date Recorded In the past 12 months, has l ack of transportation kept you from medical appts, meetings, work or from getting things needed for daily living? No 09/15/2023 Utilities Answer Date Recorded In the past 12 months, has t he Smallable, gas, oil or water company threatened to shut off services in your home? No 09/15/2023 Comments Unknown Sex and Gender Information Value Date Recorded Sex Assigned at Female 09/28/2022 10:31 AM EDT Legal Sex Female 10:31 AM EDT Gender Identity Female 09/28/2022 10:31 AM EDT Sexual Orientation Straight 09/28/2022 10 :31 AM EDT Last Filed Vital Signs Vital Sign Reading Time Taken Comments Blood Pressure 110/70 06/18/2021 12:07 AM EDT Pulse 68 06/18/2021 12:07 AM EDT Temperature - - Respiratory Rate - - Oxygen Saturation - - Inhaled Oxygen Concentration - - Weight 54.1 kg (119 lb 3.2 oz) 06/18/2021 12:07 AM EDT Height 165.1 cm (5' 5 ) 06/18/2021 12:07 AM EDT Body Mass Index 19.84 06/18/2021 12:07 AM EDT Plan of Treatment Health Maintenance Due Date Last Done Comments Depression Screening 2003 HIV Screening 2003 Lipid Panel 2003 Disability Screening 2003 Alcohol/Substance Use Screening 2015 Tobacco Screening 2015 Family Planning (PISQ) 2018 Meningococcal B Vaccine (2 of 2 - Trumenba SCDM 2-dose series) 12/08/2019 06/07/2019, 06/07/2019 Hepatitis C Screening 2021 Hepatitis B Vaccines (1 of 3 - 19+ 3-dose series) 2022 Chlamydia and Gonorrhea Screening 06/18/2022 06/18/2021 Pap Smear 2024 SDOH Screening 05/05/2024 05/05/2023 COVID-19 Vaccine (2 - season) 2024 08/05/2021 Influenza Vaccine (Season Ended) 2025 10/16/2022, 08/16/2018, 08/16/2018, Additional history exists DTaP/Tdap/Td Vaccines (3 - Td or Tdap) 01/10/2032 01/10/2022, 06/07/2019 Zoster Vaccines (1 of 2) 2053 RSV Patients and Patients Aged 60 years or older (1 - 1-dose 75+ series) 2078 HPV Vaccines Completed 02/19/2017, 01/23/2016 Meningococcal Vaccine Completed 06/07/2019 HIB Vaccines Aged Out No longer eligi ble based on patient's age to complete this topic Hepatitis A Vaccines Aged Out No long er eligible based on patient's age to complete this topic IPV Vaccines Aged Out No longer eligi ble based on patient's age to complete this topic Pneumococcal Vaccine: Pediatrics (0 to 5 Years) and At-Risk Patients (6 to 49) Years Aged Out No longer eligible based on patient's age to complete this topic RSV under 20 months Aged Out No longe r eligible based on patient's age to complete this topic Rotavirus Vaccines Aged Out No longer eligible based on patient's age to complete this topic Procedures Procedure Name Priority Date/Time Associated Diagnosis Comments TEJAS HISTORICAL CHLAMYDIA/N. GONORRHOEAE RNA, TMA, UROGENITAL Routine 06/18/2021 10:54 AM EDT from Last 3 Months or Most Recently Relevant to Health Maintenance Results * (ABNORMAL) CHLAMYDIA/N. GONORRHOEAE RNA, TMA, UROGENITAL (06/18/2021 10:54 AM EDT) Chlamydia trachomatis RNA, TMA, Urogenital DETECTED(A) NOT DETECTED [facility] Comment: ?? If results do not correlate with clinical findings, testing using an alternate molecular target which amplifies different genetic sequences can be performed on the same sample for result confirmation within 7 days of sample receipt or per performing laboratory specimen retention policy. Alternate target testing is available; 65352 (C. trachomatis) or 51911 (N. gonorrhoeae). ?? COMMENT SEE COMMENT [facility] Comment: The analytical performance characteristics of this assay, when used to test SurePath(TM) specimens have been determined by [facility]. The modifications have not been cleared or approved by the FDA. This assay has been validated pursuant to the CLIA regulations and is used for clinical purposes. ?? For additional information, please refer to https://education.SocialCompare/faq/NCG495 (This link is being provided for information/ educational purposes only.) ?? Neisseria gonorrhoeae RNA, TMA, Urogenital NOT DETECTED NOT DETECTED [facility] 06/18/2021 10:5 4 AM EDT us Dominique Butterfield CNM HISTORICAL/NON ORDERABLE LABS Final Result [facility] [address] from Last 3 Months or Most Recently Relevant to Health Maintenance Insurance [employer] C[employer] Care Teams Multiple Resaw Operator Relationship Specialty Start Date End Date Marcie Brennan MD [address] [place] [address] [place] [id number] PCP - General Internal Medicine 01/13/24
== END 2025-05-16 00:42 | disposition left against medical advice (07) ==
PROVIDERS: Emergency Provider Emergency Medicine
DX: R07.9 Chest pain, unspecified (principal); R06.02 Shortness of breath; Z53.21 Procedure and treatment not carried out due to patient leaving prior to being seen by health care provider
CPT/HCPCS: 36415; 80053; 83735; 84484; 85025; 93005; 99283

== ENCOUNTER → 2025-05-15 20:56 | Outpatient (BNV) | payer SELFPAY | PROVIDERS: Emergency Provider Emergency Medicine; Visit Provider Internal Medicine Cardiovascular Disease | DX: R07.9 Chest pain, unspecified (principal) | CPT/HCPCS: 93010 ==

== ENCOUNTER 2025-05-16 13:48 | Emergency (ER) | payer MEDICAID, SELFPAY ==
--- NOTE | 2025-05-16 13:49 | ECG_ITS ---
Test Reason : CHEST PAIN Blood Pressure : */* mmHG Vent. Rate : 109 BPM Atrial Rate : 109 BPM P-R Int : 130 ms QRS Dur : 80 ms QT Int : 324 ms P-R-T Axes : 67 75 56 degrees QTcB Int : 436 ms Sinus tachycardia Cannot rule out Anterior infarct , age undetermined Abnormal ECG When compared with ECG of 15-May-2025 20:56, Vent. rate has increased by 40 bpm Referred By: Generic ED Physician Electronically Signed By: Juanjose Gilbert
[2025-05-16 14:05] VITALS: BP 142/87; PULSE 93; RESP 16; TEMP 36.3; O2SAT 96; BMI 21.8
--- NOTE | 2025-05-16 14:08 | ED.CHESTPAIN ---
HPI - Chest Pain General Chief Complaint: Chest Pain Stated Complaint: Shortness of Breath, Chest Pain Time Seen by Provider: 05/16/25 17:35 Source: patient and family Mode of arrival: ambulatory Limitations: no limitations History of Present Illness ED Provider: DR. Lo HPI narrative: 20-year-old female came in for evaluation of mid chest pain x4 days pain has been constant, with no radiation localized to the sternal area, patient can trigger the pain by pressing on the sternum anteriorly, denies any injury or trauma to the chest wall, no lower extremity swelling or tenderness, no recent travel, patient stated that chest pain when she takes a deep breath make her short of breath, no wheezing. No history of asthma or COPD, smokes tobacco and we had, no family history of sudden or heart attacks at young ages. Related Data Previous Rx's ?Medication ?Instructions ?Recorded cefpodoxime 200 mg tablet 200 mg PO BID #20 tabs 12/18/22 lidocaine 5 % topical patch 1 patch topical DAILY #30 ea 02/11/25 Allergies Allergy/AdvReac Type Severity Reaction Status Date / Time Pollen Allergy Unknown Unknown Uncoded 05/16/25 14:06 Review of Systems Review of Systems: All other systems are reviewed and are negative Constitutional: Reports as per HPI and Reports no additional constitutional complaints Eyes: Reports as per HPI and Reports no additional eye complaints Reports system reviewed and no additional complaints, except as documented Cardiovascular: Reports as per HPI and Reports no additional cardiovascular complaints Respiratory: Reports as per HPI and Reports no additional respiratory complaints Gastrointestinal: Reports as per HPI and Reports no additional gastrointestinal complaints Genitourinary: Reports no additional female genitourinary complaints Musculoskeletal: Reports no additional musculoskeletal complaints Skin/Breast: Reports system reviewed and no additional complaints, except as docu Psychiatric: Reports no additional psychiatric complaints Endocrine: Reports no additional endocrine complaints Hematologic/Lymphatic: Reports no additional hematologic/lymphatic complaints Allergic/Immunologic: Reports no additional allergic/immunologic complaints Reports system reviewed and no additional complaints, except as documented and Reports Abnormal speech present [facility] Social History Social History Alcohol intake: never Smoked in Last 30 Days: No Use of substances other than those prescribed or required for medical reasons: No Substance Use Type: Marijuana Advance Directives: No Advance Directives Information Provided: Yes Do you have a plan to hurt others: No Plan Patient : No Physical Exam Vital Signs: Vital Signs: Last Vital Signs Temp 98.2 F 05/16/25 17:22 Pulse 74 05/16/25 17:22 Resp 16 05/16/25 17:22 BP 128/59 L 05/16/25 17:22 Pulse Ox 100 05/16/25 17:22 O2 Del Method Room Air 05/16/25 17:22 BMI result Body Mass Index 21.8 Vital signs have been reviewed and appear to be correct. Blood pressure elevated. Heart rate normal. Respiratory rate normal. Temperature normal. Oxygen saturation normal. Appearance: Alert. Oriented X3. No acute distress. Head: Normal external exam. Normocephalic. Atraumatic. No Ennis signs noted. No raccoon eyes noted Eyes: PERRLA. EOMI. Conjunctiva and sclera normal. Eyelids normal. ENT: TM's Normal. Pharynx normal. Uvula midline. Moist mucous membranes. No trismus noted. No drooling noted. No muffled voice noted. Neck: Normal inspection. Neck supple. FROM. No adenopathy. Thyroid Normal. No meningeal signs. No neck mass noted. CVS: Normal heart rate and rhythm. Heart sound normal. No murmurs noted. Pulses normal throughout. Respiratory: No respiratory distress. Painless inspiration. Breath sounds normal. No wheezes/rales/rhonchi noted. Reproducible tenderness over the sternum, no step-off, no deformity. No accessory muscle usage noted or decreased air movement noted. Abdomen: Soft and nontender. Bowel sounds normal in all 4 quadrants. No distention noted. No organomegaly noted. No visible injury noted. Back: No CVA tenderness. Full range of motion noted. Skin: Skin warm and dry. Normal skin color. Normal skin turgor. No rashes/lesions/lacerations noted. Extremities: No lower extremity edema. Extremities exhibit normal range of motion. Extremities nontender. Neuro: Oriented X 3. Cranial nerve exam: II-XII are grossly intact No motor deficit. No sensory deficit. Reflexes normal. Course Course Course Narrative: RME, this is a rapid medical exam performed by Gerson Rendon please refer to primary provider for complete H&P- 20-year-old female presents for evaluation of chest pain. EKG was performed on arrival. Plan for labs. She is well-appearing Reevaluation(s) Reevaluation #1: Patient at low risk for PE/ACS and physical exam is consistent with acute costochondritis, patient declined checking for D-dimer and chest x-ray. and left before complete treatment. Time: 18:50 Medical Decision Making Differential Diagnosis Differential Diagnoses: The differential diagnosis associated with the presentation includes (ACS, chest wall pain, costochondritis, pulmonary embolism, electrolyte derangement, severe anemia, asthma, pneumonia, pneumothorax) Admission/Observation Consideration of admission/observation: Escalation of care including admission/observation considered Lab Data MDM Lab Attestation statement: I reviewed the patient's lab results. 05/16/25 14:50 05/16/25 14:50 Labs: Lab Results 05/16/25 Range/Units 14:50 WBC 10.2 (4.8-10.8) X10*3/uL RBC 4.99 (4.20-5.50) X10*6/uL Hgb 13.4 (12.0-16.0) g/dl Hct 40.5 (37.0-47.0) % MCV 81.2 (80.0-98.0) fL MCH 26.9 L (27.0-33.0) pg MCHC 33.1 (31.0-35.0) g/dl RDW 13.6 (11.0-16.0) % Plt Count 238 (160-400) X10*3/uL MPV 12.2 (9.4-12.3) fL Immature Gran % (Auto) 0.2 (0.0-0.4) % Neut % (Auto) 83.2 H (45-73) % Lymph % (Auto) 13.2 L (20-40) % Edwards % (Auto) 2.9 (2-11) % Eos % (Auto) 0.4 (0-4) % Baso % (Auto) 0.1 (0-2) % Lymph # (Auto) 1.3 (1.2-4.9) X10*3/uL Edwards # (Auto) 0.3 (0.1-1.2) X10*3/uL Eos # (Auto) 0.0 (0.0-0.4) X10*3/uL Baso # (Auto) 0.0 (0.0-0.2) X10*3/uL Abs Immat Gran (auto) 0.02 (0.00-0.03) X10*3/uL Absolute Neuts (auto) 8.5 H (2.0-8.3) x10*3/uL Absolute Nucleated RBC 0.000 (0.0-0.012) X10*3/uL Nucleated RBC % (auto) 0.0 (0.0-0.2) /100WBC Sodium 140 (135-145) mmol/L Potassium 3.4 (3.3-5.1) mmol/L Chloride 110 H (96-108) mmol/L Carbon Dioxide 22 (22-29) mmol/L Anion Gap 11 L (12-20) BUN 13 (9-16) mg/dL Creatinine 0.77 (0.5-1.4) mg/dL Estim Creat Clear Calc 103.1 Estimated GFR > 60 Random Glucose 102 (60-115) mg/dL Calcium 9.4 (8.4-10.2) mg/dL Total Bilirubin 0.5 (0.0-1.0) mg/dL AST 23 (5-31) U/L ALT 17 (0-31) U/L Alkaline Phosphatase 71 (39-117) U/L Troponin I High Sens < 2.7 (<3.5-17.0) ng/L Total Protein 7.6 (6.5-8.0) g/dL Albumin 4.8 (3.5-5.0) g/dL Lipase 13 (8-78) U/L Beta HCG, Quant < 2 mIU/mL Independent Interpretation I performed an independent interpretation of an: EKG (Sinus tachycardia at 110, normal intervals, no ST-T changes.) Discharge Plan Discharge Clinical Impression: Chest pain, Costochondritis, acute Patient Disposition: Left W/O Completing Treatment Prescriptions: No Action cefpodoxime 200 mg tablet 200 mg PO BID Qty: 20 0RF Rx Instructions: must administer with a meal/food lidocaine 5 % adhesive patch,medicated 1 patch topical DAILY Qty: 30 0RF Rx Instructions: leave on most painful area for up to 12 hrs Discharge Date/Time: 05/16/25 18:24
[2025-05-16 15:11] LABS: MANUAL DIFF FLAG NO
[2025-05-16 15:13] LABS: Basophils Percent Auto 0.1 % (0-2); Eosinophils Percent Auto 0.4 % (0-4); Hematocrit 40.5 % (37.0-47.0); Hemoglobin 13.4 g/dl (12.0-16.0); Imm Gran Abs Auto 0.02 X10*3/uL (0.00-0.03); Imm Gran Pct Auto 0.2 % (0.0-0.4); Lymphocytes Absolute Auto 1.3 X10*3/uL (1.2-4.9); Lymphocytes Percent Auto 13.2 % (20-40); Mean Corpuscular HGB Conc 33.1 g/dl (31.0-35.0); Mean Corpuscular Hemoglobin 26.9 pg (27.0-33.0); Mean Corpuscular Volume 81.2 fL (80.0-98.0); Mean Platelet Volume 12.2 fL (9.4-12.3); Monocytes Absolute Auto 0.3 X10*3/uL (0.1-1.2); Monocytes Percent Auto 2.9 % (2-11); Neutrophils Absolute Auto 8.5 x10*3/uL (2.0-8.3); Neutrophils Percent Auto 83.2 % (45-73); Platelet Count 238 X10*3/uL (160-400); Red Blood Count 4.99 X10*6/uL (4.20-5.50); Red Cell Distribution Width 13.6 % (11.0-16.0); White Blood Count 10.2 X10*3/uL (4.8-10.8)
[2025-05-16 15:39] LABS: Alanine Aminotransferase 17 U/L (0-31); Albumin Level 4.8 g/dL (3.5-5.0); Alkaline Phosphatase 71 U/L (39-117); Anion Gap 11 (12-20); Aspartate Amino Transferase 23 U/L (5-31); Bilirubin Total 0.5 mg/dL (0.0-1.0); Blood Urea Nitrogen 13 mg/dL (9-16); Calcium 9.4 mg/dL (8.4-10.2); Carbon Dioxide 22 mmol/L (22-29); Chloride 110 mmol/L (96-108); Creatinine Clr Calc Pharmacy 103.1; Estimated Glomerular Filt Rate > 60; Glucose Random 102 mg/dL (60-115); Lipase 13 U/L (8-78); Potassium 3.4 mmol/L (3.3-5.1); Sodium 140 mmol/L (135-145); Total Protein 7.6 g/dL (6.5-8.0)
[2025-05-16 15:42] LABS: HCG Quantitative < 2 mIU/mL; Troponin-I High Sensitivity < 2.7 ng/L (<3.5-17.0)
[2025-05-16 17:22] VITALS: BP 128/59; PULSE 74; RESP 16; TEMP 36.8; O2SAT 100
--- NOTE | 2025-05-16 18:05 | PC.NURSE ---
Pt. on cellphone laughing and drinking her soda. Pt. requesting food. Educated pt. that lab work needs to be completed, pt. states The doctor never told me that. Pt. stated wants to leave. Pt. leaving without signing AMA. Charge and provider made aware.
--- NOTE | 2025-05-16 18:10 | MHC.EDTECH ---
Refused blood work due to not being able to eat
--- OUTSIDE RECORDS SUMMARY | 2025-05-16 18:16 | XMS_ITS | Clinical Summary ---
Author Organization [employer] Address [address] [facility] [address] [place] [address] Care Team Providers Care Automotive Generator Repairer Name Role Phone Marcie Brennan MD Primary Care Provider [phone] Allergies No known active allergies Active Problems Patient Care Coordination No te Formatting of this note migh t be different from the original. C3/CM Ila Samuel RN No additional problems on file Encounters Date Type Department Care Team Description 03/01/2025 Telephone [facility] [address] [place], [place] [phone] Marcie Brennan MD Appointment Request 02/26/2025 Telephone [facility] [address] [place], [place] [phone] Marcie Brennan MD tp/health information managers? from Last 3 Months Immunizations Immunization Administration [...] the past 12 months, has t he [employer], gas, oil or water company threatened to [...] trachomatis RNA, TMA, Urogenital DETECTED(A) NOT DETECTED [facility] Comment: If results do not correlate with clinical findings, testing using an alternate molecular target which amplifies different genetic sequences can be performed on the same sample for result confirmation within 7 days of sample receipt or per performing laboratory specimen retention policy. Alternate target testing is available; 94476 (C. trachomatis) or 27286 (N. gonorrhoeae). COMMENT SEE [facility] Comment: The analytical performance characteristics of this assay, when used to test SurePath(TM) specimens have been determined by [facility]. The modifications have not been cleared or approved by the FDA. This assay has been validated pursuant to the CLIA regulations and is used for clinical purposes. For additional information, please refer to https://education.[employer]/faq/BHH120 (This link is being provided for information/ educational purposes only.) Neisseria gonorrhoeae RNA, TMA, Urogenital NOT DETECTED NOT DETECTED [facility] 06/18/2021 10:5 4 AM EDT us Dominique Butterfield CNM HISTORICAL/NON ORDERABLE LABS Final Result [facility] [address] from Last 3 Months or Most Recently Relevant to Health Maintenance Insurance [employer] C3 Care Teams Automotive Generator Repairer Relationship Specialty Start Date End Date Marcie Brennan MD [address] [place] [id number] PCP - General Internal Medicine 01/13/24
== END 2025-05-16 18:24 | disposition left against medical advice (07) ==
PROVIDERS: Physician Assistant; Emergency Provider Emergency Medicine
DX: M94.0 Chondrocostal junction syndrome [Tietze] (principal); R07.9 Chest pain, unspecified; R06.02 Shortness of breath; F12.90 Cannabis use, unspecified, uncomplicated
CPT/HCPCS: 36415; 80053; 83690; 84484; 84702; 85025; 93005; 99283; 99284

== ENCOUNTER → 2025-05-16 13:49 | Outpatient (BNV) | payer SELFPAY | PROVIDERS: Emergency Provider Emergency Medicine; Visit Provider Internal Medicine Cardiovascular Disease | DX: R00.0 Tachycardia, unspecified (principal) | CPT/HCPCS: 93010 ==

== ENCOUNTER 2025-10-20 09:54 | Emergency (ER) | payer MEDICAID, SELFPAY ==
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
[2025-10-20 09:56] VITALS: BP 131/79; PULSE 86; RESP 16; TEMP 36.1; O2SAT 98; BMI 21.8
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
--- OUTSIDE RECORDS SUMMARY | 2025-10-20 10:06 | XMS_ITS | Clinical Summary ---
Author Organization [employer] Address [address] [place] [address] 7 [place] [address] Care Team Providers Care Underwriting Technician Name Role Phone Marcie Brennan MD Primary Care Provider [phone] Allergies No known active allergies Medications Hospital, Clinic, or Other Facility Administered Medication Ordered Dose Route Frequency Start Date End Date Status doxycycline (Adoxa) tablet 100 mgIndications:Chlamydia 100 mg PO 2 times daily 08/20/2025 Active Active Problems Patient Care Coordination No te Formatting of this note migh t be different from the original. C3/CM Ila Samuel RN No additional problems on file Encounters Date Type Department Care Team Description 08/20/2025 2:00 PM EDT Clinical Support [facility] [address] [place] [address] Kavita Monique, EVARISTO Chlamydia (Primary Dx) from Last 3 Months Immunizations Immunization Administration [...] the past 12 months, has t he [employer], gas, oil or water company threatened to [...] of 3 - 19+ 3-dose series) 2022 Pap Smear 2024 SDOH Screening 05/05/2024 05/05/2023 Chlamydia and Gonorrhea Screening 08/03/2024 08/03/2023, 08/03/2023, 04/05/2023, Additional history exists COVID-19 Vaccine (2 - 2024- season) 2025 08/05/2021 Influenza Vaccine (#1) 2025 2, 08/16/2018, 08/16/2018, Additional history exists DTaP/Tdap/Td Vaccines [...] Procedure Name Priority Date/Time Associated Diagnosis Comments ZZZ HISTORICAL CHLAMYDIA/N. GONORRHOEAE RNA, TMA, UROGENITAL Routine 06/18/2021 10:54 AM EDT from Last 3 Months or Most Recently Relevant to Health Maintenance Results * (ABNORMAL) CHLAMYDIA/N. GONORRHOEAE RNA, TMA, UROGENITAL (06/18/2021 10:54 AM EDT) Chlamydia trachomatis RNA, TMA, Urogenital DETECTED(A) NOT DETECTED [facility] Comment: If results do not correlate with clinical findings, testing using an alternate molecular target which amplifies different genetic sequences can be performed on the same sample for result confirmation within 7 days of sample receipt or per performing laboratory specimen retention policy. Alternate target testing is available; 18928 (C. trachomatis) [place] [address] (N. gonorrhoeae). COMMENT SEE COMMENT [facility] Comment: The analytical performance characteristics of this assay, when used to test SurePath(TM) specimens have been determined by [employer]. The modifications have not been cleared or approved by the FDA. This assay has been validated pursuant to the CLIA regulations and is used for clinical purposes. For additional information, please refer to https://education.[employer]/faq/EPQ492 (This link is being provided for information/ educational purposes only.) Neisseria gonorrhoeae RNA, TMA, Urogenital NOT DETECTED NOT DETECTED [facility] 06/18/2021 10:5 4 AM EDT us Dominique Butterfiedl CNM HISTORICAL/NON ORDERABLE LABS Final Result [facility] [address] from Last 3 Months or Most Recently Relevant to Health Maintenance Insurance [employer] C3 Care Teams Underwriting Technician Relationship Specialty Start Date End Date Marcie Brennan MD [address] [place] [id number] PCP - General Internal Medicine 01/13/24
[2025-10-20 10:20] VITALS: BP 128/87; PULSE 84; RESP 20; O2SAT 98
[2025-10-20] MEDS: Diphth,Pertus(ACell),Tet Adult 0.5 ML SYRINGE IM (10:25)
[2025-10-20 11:26] VITALS: BP 128/87; PULSE 84; RESP 20; TEMP 37.1; O2SAT 98
== END 2025-10-20 11:27 | disposition home or self-care (01) ==
PROVIDERS: Emergency Provider Emergency Medicine Emergency Medical Services
DX: S02.2XXA Fracture of nasal bones, initial encounter for closed fracture (principal); S01.511A Laceration without foreign body of lip, initial encounter; R51.9 Headache, unspecified; R68.84 Jaw pain; Y04.2XXA Assault by strike against or bumped into by another person, initial encounter; Y93.9 Activity, unspecified; Y92.9 Unspecified place or not applicable; Y99.8 Other external cause status; Z23 Encounter for immunization
CPT/HCPCS: 70486; 90471; 90715; 99284

== ENCOUNTER → 2025-10-20 09:59 | Outpatient (BNV) | payer MEDICAID, SELFPAY | PROVIDERS: Emergency Provider Emergency Medicine Emergency Medical Services; Visit Provider Radiology Diagnostic Radiology | DX: S02.2XXA Fracture of nasal bones, initial encounter for closed fracture (principal); Y04.8XXA Assault by other bodily force, initial encounter | CPT/HCPCS: 70486 ==